=== PATIENT | male | born 1985 | race Caucasian/White ===

== ENCOUNTER 2020-08-24 13:16 | Emergency (ER) | payer SELFPAY ==
[~2020-08-24] VITALS: Ht 165.1 cm; Wt 118.2 kg
[2020-08-24 13:35] VITALS: TEMP 97.6
[2020-08-24] MEDS ORDERED: ADVIL200 MG (13:38)
[2020-08-24 15:40] VITALS: BP 142/78; PULSE 72
== END 2020-08-24 15:40 | disposition home or self-care (01) ==
LOC: COL.ER 13:16
DX: R51.9 Headache, unspecified (principal)
CPT/HCPCS: J1885; J7030

== ENCOUNTER 2021-11-01 12:58 | Emergency (ER) | payer SELFPAY ==
[~2021-11-01] VITALS: Ht 165.1 cm; Wt 120.5 kg
[~2021-11-01 12:58] MED LIST: ADVIL200 MG
[2021-11-01 14:16] VITALS: BP 119/65; PULSE 84; TEMP 98.1
== END 2021-11-01 14:17 | disposition home or self-care (01) ==
LOC: COL.ER 12:58
DX: U07.1 COVID-19 (principal)

== ENCOUNTER 2021-11-03 04:36 | Emergency (ER) | payer SELFPAY ==
[~2021-11-03] VITALS: Ht 165.1 cm; Wt 120.5 kg
[2021-11-03 05:06] VITALS: TEMP 98.2
[2021-11-03] MEDS ORDERED: TUSS PO (06:20)
[2021-11-03 06:30] VITALS: BP 120/62; PULSE 78
== END 2021-11-03 06:30 | disposition home or self-care (01) ==
LOC: COL.ER 04:36
DX: U07.1 COVID-19 (principal); R07.81 Pleurodynia; Z73.0 Burn-out

== ENCOUNTER 2021-11-05 06:17 | Emergency (ER) | payer SELFPAY ==
[~2021-11-05] VITALS: Ht 165.1 cm; Wt 120.5 kg
[~2021-11-05 06:17] MED LIST changes: +TUSS PO
[2021-11-05 06:28] VITALS: BP 137/87; TEMP 98.4
[2021-11-05 07:43] VITALS: PULSE 86
== END 2021-11-05 07:43 | disposition home or self-care (01) ==
LOC: COL.ER 06:17
DX: U07.1 COVID-19 (principal); Z73.0 Burn-out